=== PATIENT | male | born 1945 ===

== ENCOUNTER 2024-06-03 08:27 | Emergency (ER) | payer MEDICARE, MEDICAID, SELFPAY ==
[2024-06-03] VITALS (74 sets, daily range): BP systolic 58–121; BP diastolic 40–80; PULSE 56–187; RESP 7–32; TEMP 36.5; O2SAT 94–100
--- NOTE | 2024-06-03 08:15 | RT.EKG_ITS ---
APPROVED REPORT Exam: Resting ECG Reason for Exam: AMS Patient Location: E HR:103 bpm ECG Measurements Heart Rate 103 AXIS HI 145 P 79 QRSd 87 QRS 266 QT 340 T 87 QTc 445 Conclusion Sinus tachycardia...rate> 99 Right atrial enlargement...P>0.25mV 2 lds or<-0.24mV aVR/aVL Probable inferior infarct, old...Q>35mS, II III aVF Consider anterior infarct...Q >30mS in V2-V5
--- NOTE | 2024-06-03 08:37 | ED.GENADUL_ITS ---
Discharge Plan Discharge Details Chief Complaint: AMS/LOC Clinical Impression: Cachectic, Renal failure, Pneumothorax, Pneumomediastinum, Afib Primary Care Provider: Unknown,Unknown ED Provider: Shelbie Ludwig Home Meds and New Rx's Prescriptions: No Action No Known Home Meds HPI General Mode of arrival: EMS . Date/Time Provider Initiated Documentation: 06/03/24 08:35 . Limitations to Documentation: altered mental status and physical limitation . Information obtained by: patient, EMS, RN notes reviewed and old records reviewed . HPI Narrative: 78-year-old male presents to the ER via EMS with chief complaint of altered mental status, cachexia, possible dehydration. Per EMS patient is in an apartment complex lives alone, EMS was called by a landlord, EMS reports approximately 80 degrees in the apartment. The landlord did bring the patient some milk on Monday which was patient's last known well. Here in cachectic state, very thin appears malnourished, sick white coating on mucous membranes. On exam does have stage II skin breakdown noted to the coccyx. Does answer yes or no questions, no facial droop moves all 4 extremities, 2 out of 5 strength to all 4 extremities, generalized weakness, no signs of trauma noted, no increased work of breathing or respiratory distress. Patient denies falls or hitting his head. Denies any meds allergies. Related Data Home Medications ?Medication ?Instructions ?Recorded ?Confirmed Unknown [No Known Home Meds] 06/03/24 06/03/24 Allergies Allergy/AdvReac Type Severity Reaction Status Date / Time No Known Allergies Allergy Unverified 06/03/24 08:33 General Stated Complaint: AMS/LOC JAZMYNE: 2 Review of Systems Narrative: Poor historian, History limited by physical condition. Patient appears very weak, hard time speaking, but answers yes or no questions All systems reviewed & are unremarkable except as noted in HPI and below and Unobtainable due to mental status Constitutional Constitutional: Reports as per HPI, Denies frequent falls, Reports poor appetite, Reports weakness and Reports weight loss Cardiovascular Cardiovascular: Denies chest pain, Denies leg ulcers and Reports leg edema Respiratory Respiratory: Denies cough Gastrointestinal Gastrointestinal: Denies abdominal pain, Reports loose stools and Denies vomiting Genitourinary Genitourinary: Reports as per HPI Integumentary/Breasts Skin/Breast: Reports dry skin, Denies rash, Reports skin ulcer (Coccyx) and Reports sores Neurologic Neurologic: Reports as per HPI, Reports behavioral changes, Denies frequent falls and Reports weakness Psychiatric Psychiatric: Reports behavioral changes Exam Narrative Exam Narrative: Constitutional: Awake and responsive answers yes or no, no focal neurodeficits noted, EOMs intact, patient is very cachectic appears chronically ill and malnourished. Head: Normocephalic, no trauma. Eyes: Pupils PERRL, Red reflex noted, EOM's intact. Eyelids symmetrical without lesions, discharge, or swelling. ENT: Bilateral TM's WNL, External ear normal to inspection, no mastoid TTP, swelling, or erythema, Nasal turbinates WNL, no nasal discharge. Poor dentition, mucous membranes coated with thick white possible milky substance. Chest: RRR, mild tachycardia 101, normal S1, S2, distal pulses intact. Hypotensive 86/68 upon arrival, 1+ edema noted to bilateral lower extremities. Resp: Lungs clear to auscultation bilaterally, no wheezes, rales, or rhonchi. Abdomen: Soft, no palpable masses no guarding no distention. Musculoskeletal: Unable to assess gait, unable to lift legs off bed, generalized weakness. Skin: Stage II decubitus ulcer noted to the coccyx top layer of dermis breakdown, no surrounding induration or erythema noted, no drainage 2 seperate areas of breakdown, (See diagram) approximately 2 cm x 2 cm,capillary refill less than 2 sec. Neurologic: Cranial nerves II-XII intact. Alert and oriented x 1. Motor: No deficits noted. Sensory: Intact bilaterally all 4 extremities. Hematologic/Lymphatic: No suspicious or traumatic ecchymosis, no lymphadenopathy. Course Vital Signs Vital signs: Vital Signs Pulse 101 H 06/03/24 08:28 Respiratory Rate 18 06/03/24 08:28 Blood Pressure 86/68 L 06/03/24 08:28 Pulse Oximetry 94 06/03/24 08:28 Pulse 101 H 06/03/24 08:28 Respiratory Rate 18 06/03/24 08:28 Blood Pressure 86/68 L 06/03/24 08:28 Pulse Oximetry 94 06/03/24 08:28 Oxygen Delivery Method Room Air 06/03/24 08:28 Oxygen Flow Rate 0 06/03/24 08:28 Medical Decision Making 78-year-old male presents to the ER via EMS with chief complaint of altered mental status, cachexia, possible dehydration. Per EMS patient is in an apartment complex lives alone, EMS was called by a landlord, EMS reports approximately 80 degrees in the apartment. The landlord did bring the patient some milk on Monday which was patient's last known well. Here in cachectic state, very thin appears malnourished, sick white coating on mucous membranes. On exam does have stage II skin breakdown noted to the coccyx. Does answer yes or no questions, no facial droop moves all 4 extremities, 2 out of 5 strength to all 4 extremities, generalized weakness, no signs of trauma noted, no increased work of breathing or respiratory distress. Patient denies falls or hitting his head. Denies any meds allergies. Workup ordered including CT head, chest x-ray serial troponins EKG CBC CMP magnesium urinalysis UDS and 500 cc normal saline. Differential diagnosis at this time includes but not limited to CVA however,no obvious focal neurodeficits noted no hemiplegia, malnourishment, dehydration, electrolyte disturbance, failure to thrive, Un diagnosed CA, EKG was reviewed by Dr. Rivera and myself ER attending, no old EKG available. Tachycardic please see official report. At this time patient has converted into atrial fibrillation with RVR rate at this time currently is approximately 185, patient placed on monitor pads, Dr. Rivera at bedside at my request, will consider small amount of diltiazem for rate control however his blood pressure he is hypotensive at 78/53 this time. Will observe closely. Patient is getting a liter of LR at this time. Repeat EKG obtained which shows A-fib with RVR. I did ask patient again if he wanted to be intubated or have CPR if needed he does shake his head no. However at this time it is unlikely that patient has medical decision-making capacity, no emergency contacts listed, patient denies any family or friends. BP cuff set for Q5 min, continuous observation and frequent re-evaluations, BP now 82/63 during IV bolus of LR. Spoke with Dr. Hawley with radiology he reports what looks like possible subcutaneous air to his right chest wall however no evidence of pneumothorax or broken ribs no aspiration, see official report. CT chest without contrast ordered. I will further inspect patient's chest. For any wounds. On patient reevaluation he appears to be responding much better at this time. He does whisper to me Can I have ice cream?, patient given a oral mouth swab patient is attempting to swab his mouth. No wounds noted to Right chest wall or axillae, Moves upper extremities without difficulty, discussed likely admission with patient, he nods in understanding. Patient being transported to mobile CT unit with RN and tele-monitoring. Will re-assess and give cardizem slow IVP after returning. 1045: Patient received 5 mg of Cardizem slow IV push over approximately 10 minutes, heart rate is now 129, blood pressure 75/60, MAP of 64, Wilks catheter placed by staff consultant, 100 cc yellow urine return. 1150: Spoke with Dr. Jung regarding patient case in details, he is ok with Phenylephrine drip for BP management, please see the CT results regarding extendsive Subcutaneous emphysema of unknown origin. , 1158: Dr. Hawley With General surgery regarding CT result who does not recommend chest tube at this time he states possibly a ruptured bulae, he agrees to consult patient if needed. 1159: Dr. Concepcion paged at Dr. Whitman recommendation. Will plan for admission. 1205: Spoke with Dr. Concepcion who recommends fluid re-hydration at this tiem, will hold Cardizem drip. Will go ahead with Phenylephrine drip. 1211: On re-evaluation Urine output approx 400ml, dark kassandra urine, LR at 125/hr. pending Phenylephrine gtt. 1217: Spoke again with Dr. Elmore he agrees to accept patient for admission, 1250: Dr. Elmore at [facility] for pt eval, echo-tech at BS. Awaiting bed placement, BP 102 systolic after phenylephrine drip started. HR 137. [employer] records management specialist here at [facility] for patient eval, Dr. Hawley with general surgery, and Dr. Elmore with hospitalist team here for patient case and details discus adeola. 1434: Requested for [facility] consult from Dr. Elmore. 1443: Spoke with [facility] transfer center regarding pt case and details, they have ICU capacity at [facility]. 1630: Care to be handed off to oncoming provider MOMO Baldwin pending tertiary facility transfer versus admission to ICU. Discussed patient case in details with him he verbalized understanding. I still have not heard back from [facility] at this time. Patient continued to be monitored here In ED at this time. Imaging Data Radiologic Study: Imaging: CT Scan Radiologist's impression: IMPRESSION: 1. Examination limited by lack of IV contrast and intra-abdominal fat. 2. Extensive subcutaneous gas particularly in the neck and chest region. 3. Pneumomediastinum and small right apical pneumothorax. 4. Reticular nodular infiltrate seen in the lung bases. Infectious or inflammatory process should be considered. No focal consolidating infiltrates are seen. 5. Unremarkable esophagus. 6. No displaced rib fractures. 7. 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 8. 2.4 cm hypodense lesion in the liver which appears represent a cyst. 9. Left nephrolithiasis without evidence of hydronephrosis. 10. Marked urinary bladder distention which may reflect bladder outlet obstructi on. There is an enlarged prostate gland. 11. The ascending thoracic aorta measures 4.3 x 4.1 cm. Atherosclerotic calcification and coronary artery calcification is present. 12. Findings were discussed with Dr. Rivera at 11:45 a.m. on 06/03/2024. Lab Data Lab results reviewed: Yes I reviewed the patient's lab results. Labs: 06/03/24 09:10 Blood Blood Culture - Pending 06/03/24 08:45 Blood Blood Culture - Pending Laboratory Tests Range/Units 06/03/24 06/03/24 06/03/24 08:45 08:45 09:00 WBC (4.4-10.8) 10^3/uL 11.99 H RBC (4.36-5.78) 10^6/uL 4.87 Hgb (13.5-17.5) g/dL 14.7 Hct (40.0-50.0) % 46.1 MCV (80-95) fL 95 MCH (27.0-33.0) pg 30.2 MCHC (32.0-36.0) % 31.9 L RDW (11.8-14.1) % 17.8 H Plt Count (130-400) 10^3/uL 59 L MPV (8.0-11.0) fL 11.1 H Immature Gran % % 0.5 Neutrophils % % 85.6 Lymphocytes % % 8.6 Monocytes % % 5.1 Eosinophils % % 0.0 Basophils % % 0.2 Nucleated RBC % (0.0-0.3) % 0.2 Absolute Neutrophils (1.2-6.7) 10^3/uL 10.26 H Absolute Lymphocytes (1.2-3.4) 10^3/uL 1.03 L Absolute Monocytes (0.1-0.8) 10^3/uL 0.61 Absolute Eosinophils (0.0-0.7) 10^3/uL 0.00 Absolute Basophils (0.0-0.2) 10^3/uL 0.02 RBC Morphology Normal PT (9.1-11.1) sec 16.1 H INR (0.9-1.1) 1.7 H Sodium (136-145) mmol/L 163 H* Potassium (3.5-5.1) mmol/L 4.4 Chloride (98-107) mmol/L 114 H Carbon Dioxide (21.0-32.0) mmol/L 32.7 H Anion Gap (3-11) mmol/L 16.3 H BUN (7-18) mg/dL 181 H* Creatinine (0.70-1.30) mg/dL 6.8 H* Est GFR (CKD-EPI 2020) (mL/min/1.73m2) 7.82 Glucose (74-106) mg/dL 160 H Calcium (8.5-10.1) mg/dL 11.0 H Magnesium (1.8-2.4) mg/dL 3.4 H Total Bilirubin (0.2-1.0) mg/dL 1.47 H AST (15-37) U/L 22 ALT (16-63) U/L 25 Alkaline Phosphatase (46-116) U/L 88 Ammonia (11-32) umol/L Creatine Kinase (39-308) U/L 38 L Troponin I (< or =60) ng/L 59 C-Reactive Protein (<or=0.5) mg/dL 8.48 H NT-Pro-B Natriuret Pep (<300) pg/mL 2266 H Total Protein (6.4-8.2) g/dL 8.2 Albumin (3.4-5.0) g/dL 3.7 Procalcitonin ng/mL 0.7 TSH (0.36-3.74) uIU/mL 2.92 3.00 Ethyl Alcohol (<10) mg/dL < 3.0 Add-On Test Request DONE Range/Units 06/03/24 06/03/24 09:23 09:41 WBC (4.4-10.8) 10^3/uL RBC (4.36-5.78) 10^6/uL Hgb (13.5-17.5) g/dL Hct (40.0-50.0) % MCV (80-95) fL MCH (27.0-33.0) pg MCHC (32.0-36.0) % RDW (11.8-14.1) % Plt Count (130-400) 10^3/uL MPV (8.0-11.0) fL Immature Gran % % Neutrophils % % Lymphocytes % % Monocytes % % Eosinophils % % Basophils % % Nucleated RBC % (0.0-0.3) % Absolute Neutrophils (1.2-6.7) 10^3/uL Absolute Lymphocytes (1.2-3.4) 10^3/uL Absolute Monocytes (0.1-0.8) 10^3/uL Absolute Eosinophils (0.0-0.7) 10^3/uL Absolute Basophils (0.0-0.2) 10^3/uL RBC Morphology PT (9.1-11.1) sec INR (0.9-1.1) Sodium (136-145) mmol/L Potassium (3.5-5.1) mmol/L Chloride (98-107) mmol/L Carbon Dioxide (21.0-32.0) mmol/L Anion Gap (3-11) mmol/L BUN (7-18) mg/dL Creatinine (0.70-1.30) mg/dL Est GFR (CKD-EPI 2020) (mL/min/1.73m2) Glucose (74-106) mg/dL Calcium (8.5-10.1) mg/dL Magnesium (1.8-2.4) mg/dL Total Bilirubin (0.2-1.0) mg/dL AST (15-37) U/L ALT (16-63) U/L Alkaline Phosphatase (46-116) U/L Ammonia (11-32) umol/L < 10 L Creatine Kinase (39-308) U/L Troponin I (< or =60) ng/L C-Reactive Protein (<or=0.5) mg/dL NT-Pro-B Natriuret Pep (<300) pg/mL Total Protein (6.4-8.2) g/dL Albumin (3.4-5.0) g/dL Procalcitonin ng/mL TSH (0.36-3.74) uIU/mL Ethyl Alcohol (<10) mg/dL Add-On Test Request DONE Quality:SDOH Health Related Social Needs: No Data to Display Critical Care Time Critical Care Time Critical Care Time: Yes Total Critical Care Time: 60 PFSH All Active Problems (Updated 06/03/24 @ 14:38 by Shelbie Ludwig NP) Pneumomediastinum (Acute) Pneumothorax (Acute) Hypovolemic shock (Acute) Shock (Acute) Shock bowel (Acute) Thrombocytopenia (Chronic) Afib (Chronic) ELOISA (acute kidney injury) (Acute) Chronic hypernatremia (Acute) Renal failure (Chronic) Cachectic (Acute) Social History Smoking/Tobacco Use Status: Never Smoking risk assessment performed?: Yes Alcohol Intake: never Drug use: Never Substance use type: does not use Housing: apartment Sign Out Sign Out Data: Sign Out Comment: Hypernatremia, Afib, refractory, Renal failure, Pending transfer to tertiary facility, awaiting call back from [facility]. Needs ICU admission. Last updated by Shelbie Ludwig NP at 06/03/24 16:12
--- NOTE | 2024-06-03 08:45 | RT.EKG_ITS ---
APPROVED REPORT Exam: Resting ECG Reason for Exam: Tachycardia Patient Location: E HR:162 bpm ECG Measurements Heart Rate 162 AXIS VT [id number] P [id number] QRSd 84 QRS -60 QT 293 T 89 QTc 482 Conclusion Atrial fibrillation with rapid V-rate...A-rate 351 Left anterior fascicular block...axis(240,-40), init forces inf Low voltage, extremity leads...all extremity leads <0.5mV Nonspecific T abnormalities, lateral leads...T <-0.10mV, I aVL V5 V6
[2024-06-03 08:54] LABS: Abs Immature Grans 0.06 10^3/uL (0.0-0.06); Absolute Basophil Count 0.02 10^3/uL (0.0-0.2); Absolute Lymphocyte Count 1.03 10^3/uL (1.2-3.4); Absolute Monocyte Count 0.61 10^3/uL (0.1-0.8); Basophils % 0.2 %; HCT 46.1 % (40.0-50.0); HGB 14.7 g/dL (13.5-17.5); Immature Grans % 0.5 %; Lymphocytes % 8.6 %; MCH 30.2 pg (27.0-33.0); MCHC 31.9 % (32.0-36.0); MCV 95 fL (80-95); MPV 11.1 fL (8.0-11.0); Monocytes % 5.1 %; Neutrophils % 85.6 %; Nucleated RBC 0.2 % (0.0-0.3); RBC 4.87 10^6/uL (4.36-5.78); RDW 17.8 % (11.8-14.1); RDW-SD 57.5 fL; WBC 11.99 10^3/uL (4.4-10.8)
[2024-06-03 08:56] LABS: Absolute Neutrophil Count 10.26 10^3/uL (1.2-6.7)
--- NOTE | 2024-06-03 08:58 | DI.RAD_ITS ---
Exam(s) XR PORTABLE CHEST AP EXAM: XR PORTABLE CHEST AP CLINICAL HISTORY: AMS TECHNIQUE: 2D digital imaging was performed of the chest. One image was obtained. An AP view was ob tained. COMPARISON: No exams were available for comparison FINDINGS: MEDIASTINUM: Normal. HEART: Normal. PULMONARY VASCULATURE: Normal. LUNGS: Clear. PLEURAL SPACE: There is no pleural effusion. No pneumothorax is seen on the left. No definite pneum othorax is seen on the right, however evaluation of the lung apex is limited. BONE:Within normal limits for the patient's age. No displaced rib fractures identified. OTHER FINDINGS:Along the right chest wall superiorly, there does appear to be subcutaneous air extend ing into the neck. IMPRESSION: 1. Subcutaneous air along the right clavicle and right lateral chest wall. Noncontrast CT scan of th e chest should be considered for further evaluation. 2. No evidence of a displaced rib fracture. No definite pneumothorax is seen, however evaluation of the lung apex is compromised. 3. No focal infiltrate or pleural effusion. 4. Findings were discussed with the Shelbie Ludwig at 9:20 a.m. on 06/03/2024. DATA REPOSITORY: RADIATION DOSE DELIVERED:
[2024-06-03 09:02] LABS: INR 1.7 (0.9-1.1); Prothrombin Time 16.1 sec (9.1-11.1)
[2024-06-03] MEDS: Lactated Ringers 1,000 ML 1000 ML IV (09:07)
[2024-06-03 09:09] LABS: Lab Add On Test DONE
[2024-06-03 09:23] LABS: Platelet Count 59 10^3/uL (130-400)
[2024-06-03 09:24] LABS: Diff Comment Diff Reviewed; RBC Morphology Normal
[2024-06-03 09:26] LABS: ALT 25 U/L (16-63); AST 22 U/L (15-37); Albumin 3.7 g/dL (3.4-5.0); Alkaline Phosphatase 88 U/L (46-116); Anion Gap 16.3 mmol/L (3-11); Bilirubin, Total 1.47 mg/dL (0.2-1.0); CO2 32.7 mmol/L (21.0-32.0); Chloride 114 mmol/L (98-107); Estimated GFR 7.82 (mL/min/1.73m2); Glucose 160 mg/dL (74-106); Magnesium 3.4 mg/dL (1.8-2.4); Potassium 4.4 mmol/L (3.5-5.1); TSH (W/Ref FT4) 2.92 uIU/mL (0.36-3.74); Total Protein 8.2 g/dL (6.4-8.2); Troponin I 59 ng/L (< or =60)
[2024-06-03 09:30] LABS: ETHANOL BLOOD < 3.0 mg/dL (<10)
[2024-06-03] MEDS: Normal Saline 500 ML IV (09:30)
--- NOTE | 2024-06-03 09:30 | DI.CT_ITS ---
Exam(s) CT CHEST/ABD/PEL WO EXAM: CT CHEST/ABD/PEL WO CLINICAL HISTORY: AMS, Elevated Creatanine, TECHNIQUE: Imaging Protocol: Axial computed tomography images with coronal and sagittal reformatted images were created and reviewed COMPARISON: There are no priors for comparison. FINDINGS: CHEST: Tracheobronchial tree: Patent where visualized. No bronchiectasis. Pulmonary parenchyma: Note is made of an azygos lobe. There is a reticular nodular infiltrate in the lower lobes bilaterally. No focal consolidating infiltrates are seen. No pulmonary nodules are see n. There is mild scarring in the right middle lobe and left lingula. Mediastinum and Teagan: There is pneumomediastinum present there is right apical pneumothorax which gabriel ears small. The esophagus is unremarkable. Thyroid gland: Unremarkable. Pleura: No pleural effusion. Heart: The heart is not dilated. Coronary artery calcification is present. No pericardial effusion. Aorta: The ascending thoracic aorta measures 4.3 x 4.1 cm. Atherosclerotic calcification is present. Lymph nodes: Within normal limits. Bones:Within normal limits for the patient's age. No displaced rib fractures are identified. Age-ap propriate degenerative changes are seen in the spine. Soft tissues: There is extensive subcutaneous air in the neck and chest bilaterally. It extends infe riorly in the paraspinal soft tissues. ABDOMEN: Liver: Normal density. There is a 2.4 cm hypodense lesion in the right liver. It appears slightly hy podense to the urine in the urinary bladder suggesting a cyst. No suspicious hepatic lesions are see n at this time. Gallbladder and Biliary Tract: No radiodense calculus or dilation. Pancreas: Normal density, no abnormal calcifications or inflammatory process. Spleen: Calcified granuloma are present. Adrenals: No masses seen. Kidneys: Normal size, contour and axis. Left nephrolithiasis. No obstructive uropathy. There is a c yst in the left kidney. No follow-up is recommended. Abdominal Aorta: Atherosclerotic calcification is present. There is a 3 cm infrarenal abdominal aort ic aneurysm. 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 Bowel: Evaluation of the bowel is limited due to lack of oral contrast and paucity of abdominal fat. No evidence of obstruction is seen. No evidence of an appendicitis. Peritoneal Cavity: No ascites, collection or mesenteric inflammatory response. No definite free air i s seen. There is large bowel seen in the left upper quadrant. It appears to all be intraluminal. Lymph Nodes: Within normal limits. Bones: Within normal limits for the patient's age. Soft Tissues: There is subcutaneous air seen in the paraspinal soft tissues. PELVIS: Bladder: The bladder is markedly distended. It is otherwise unremarkable. This may reflect bladder outlet obstruction. Reproductive Organs: Enlarged prostate gland. Lymph Nodes: Within normal limits. Bones: Within normal limits for the patient's age. IMPRESSION: 1. Examination limited by lack of IV contrast and intra-abdominal fat. 2. Extensive subcutaneous gas particularly in the neck and chest region. 3. Pneumomediastinum and small right apical pneumothorax. 4. Reticular nodular infiltrate seen in the lung bases. Infectious or inflammatory process should be considered. No focal consolidating infiltrates are seen. 5. Unremarkable esophagus. 6. No displaced rib fractures. 7. 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 8. 2.4 cm hypodense lesion in the liver which appears represent a cyst. 9. Left nephrolithiasis without evidence of hydronephrosis. 10. Marked urinary bladder distention which may reflect bladder outlet obstruction. There is an enla rged prostate gland. 11. The ascending thoracic aorta measures 4.3 x 4.1 cm. Atherosclerotic calcification and coronary a rtery calcification is present. 12. Findings were discussed with Dr. Rivera at 11:45 a.m. on 06/03/2024. RADIATION DOSE DELIVERED: Total DLP Total DLP DATA REPOSITORY: All CT scans at this facility are submitted to the National Radiology Data Registry (NRDR) Dose Index Registry (DIR) with the [employer] ([employer]). RADIATION OPTIMIZATION: All CT scans at this facility use at least one of these dose optimization te chniques: automated exposure control; mA and/or kV adjustment per patient size (includes targeted exa ms where dose is matched to clinical indication); or iterative reconstruction.
[2024-06-03 09:32] LABS: BUN 181 mg/dL (7-18); CREATININE 6.8 mg/dL (0.70-1.30); Sodium 163 mmol/L (136-145)
[2024-06-03 09:46] LABS: Ammonia < 10 umol/L (11-32)
[2024-06-03 10:04] LABS: Lab Add On Test DONE
--- NOTE | 2024-06-03 10:15 | DI.CT_ITS ---
Exam(s) CT HEAD WO EXAM: CT HEAD WO CLINICAL HISTORY: AMS. TECHNIQUE: Imaging Protocol: Axial computed tomography images with coronal and sagittal reformatted images were created and reviewed COMPARISON: No exams were available for comparison FINDINGS: There is patient motion artifact Ventricles and Extra axial spaces: Normal in size and morphology for the patient's age. Hemorrhage: None. Cerebral parenchyma: There are areas of decreased attenuation in the white matter consistent with chr onic microvascular ischemic disease. No mass effect is identified. Midline shift: None. Brainstem/Cerebellum: Normal. Calvarium: Normal. Visualized Paranasal sinuses/Mastoids: Clear. Soft Tissues: There is subcutaneous air in the soft tissues of the neck. IMPRESSION: 1. No acute intracranial process. 2. Subcutaneous air in the soft tissues of the neck of indeterminate etiology. RADIATION DOSE DELIVERED: Total DLP DATA REPOSITORY: All CT scans at this facility are submitted to the National Radiology Data Registry (NRDR) Dose Index Registry (DIR) with the [employer] (ACR). RADIATION OPTIMIZATION: All CT scans at this facility use at least one of these dose optimization te chniques: automated exposure control; mA and/or kV adjustment per patient size (includes targeted exa ms where dose is matched to clinical indication); or iterative reconstruction.
[2024-06-03 10:26] LABS: C-Reactive Protein 8.48 mg/dL (<or=0.5); Creatine Kinase 38 U/L (39-308); NT-proBNP 2266 pg/mL (<300)
[2024-06-03 10:29] LABS: Procalcitonin 0.7 ng/mL
[2024-06-03] MEDS: dilTIAZem 25 MG/5 ML VIAL 5 MG IVP ×2 (10:58→11:04)
[2024-06-03] MEDS: Lactated Ringers 1,000 ML 100 ML IV (10:59)
[2024-06-03 12:17] LABS: Troponin I 53 ng/L (< or =60)
--- NOTE | 2024-06-03 12:41 | W.SURGCON ---
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 Mediastinal pathology that would include things like esophageal perforation and esophageal malignancy would also be within the differential here, although the lack of any inflammation within the mediastinum, or any signs of free fluid would argue against that. Obviously, necrotizing soft tissue infection could also cause this, but the external skin is totally normal-appearing, and he is not really tender at all. And with this much gas, I certainly think the more obvious changes would be apparent externally if that was the case. Given his overall appearance of severe malnutrition, malignancy could also be considered, although there is not an obvious source at this point. The subcutaneous emphysema itself does not seem to be causing much pain, and should resolve with time. If he requires positive pressure ventilation, then I would repeat an x-ray very shortly thereafter to ensure that there is no accumulation of true pneumothorax. Absent that, I do not see any target for tube thoracostomy. Obviously, he has a number of other critical medical conditions including severe hypernatremia and acute renal failure. Seems to be most consistent with severe dehydration, and should improve with plasma expansion and scientologist of normal intravascular volume. History of Present Illness History of Present Illness Chief Complaint: Subcutaneous emphysema Narrative: Vicente is 78 years old, comes to the emergency department by EMS after neighbor checked on him and found with altered mental status in his recliner. It seems that he has been there for several days. In the emergency department, he is found to have a mild leukocytosis. He is hyponatremic to a sodium of 160, with evidence of acute kidney injury as well. There are some community connections notes describing some homelessness, and the significant number of social determinants of health. However, not much else is known about his medical conditions otherwise. He tells me that he is not feeling well. He does not report any known past medical history. He denies any allergies. He cannot recall the last time he saw a doctor. He is thirsty. He denies any nausea or vomiting. He cannot recall the last time he had anything to eat or drink. While in the emergency department, he underwent a CT scan of the chest abdomen and pelvis. Relevant findings include extensive subcutaneous emphysema involving mostly the right thorax, but certainly extending up into the neck bilaterally. Review of Systems Constitutional Constitutional: Reports body ache(s), Reports fatigue, Denies fever(s), Reports lethargy, Reports poor appetite, Reports weakness and Reports weight loss Eyes Eyes: Reports system reviewed and no additional complaints, except as documented ENT Ears, Nose, Mouth, and Throat: Reports abnormal hearing, Reports change in voice, Reports dizziness and Reports dry mouth Cardiovascular Cardiovascular: Denies chest pain and Reports dyspnea Respiratory Respiratory: Denies cough and Reports dyspnea Gastrointestinal Gastrointestinal: Denies change in stool character, Denies nausea and Denies vomiting Genitourinary Genitourinary: Reports system reviewed and no additional complaints, except as documented Musculoskeletal Musculoskeletal: Reports abnormal gait, Reports back pain, Reports myalgias and Reports atrophy Neurologic Neurologic: Reports abnormal hearing, Reports abnormal gait, Reports dizziness and Reports weakness Psychiatric Psychiatric: Reports system reviewed and no additional complaints, except as documented Endocrine Endocrine: Reports fatigue Hematologic/Lymphatic Hematologic/Lymphatic: Denies easy bleeding and Denies easy bruising PFSH All Active Problems Pneumomediastinum (Acute) Pneumothorax (Acute) Hypovolemic shock (Acute) Shock (Acute) Shock bowel (Acute) Thrombocytopenia (Chronic) Afib (Chronic) ELOISA (acute kidney injury) (Acute) Chronic hypernatremia (Acute) Renal failure (Chronic) Cachectic (Acute) Social History Smoking/Tobacco Use Status: Never Smoking risk assessment performed?: Yes Alcohol Intake: never Drug use: Never Substance use type: does not use Housing: apartment Exam Const General: cooperative, frail appearing and ill appearing Nutritional Appearance: cachectic Orientation: alert, oriented to place and confused [facility] Head: normal to inspection Neck Neck: normal visual inspection, full ROM and no lymphadenopathy Resp Effort & Inspection: not able to speak in complete sentences Auscultation: wheezes Results Last Vital Signs Pulse 114 H 06/03/24 12:11 Resp 20 06/03/24 11:10 BP 68/40 L 06/03/24 12:11 Pulse Ox 98 06/03/24 12:11 Labs 06/03/24 08:45 06/03/24 15:22 Labs: Laboratory Results - last 24 hr 06/03/24 06/03/24 06/03/24 08:45 08:45 09:00 WBC 11.99 H RBC 4.87 Hgb 14.7 Hct 46.1 MCV 95 MCH 30.2 MCHC 31.9 L RDW 17.8 H Plt Count 59 L MPV 11.1 H Immature Gran % 0.5 Neutrophils % 85.6 Lymphocytes % 8.6 Monocytes % 5.1 Eosinophils % 0.0 Basophils % 0.2 Nucleated RBC % 0.2 Absolute Neutrophils 10.26 H Absolute Lymphocytes 1.03 L Absolute Monocytes 0.61 Absolute Eosinophils 0.00 Absolute Basophils 0.02 RBC Morphology Normal PT 16.1 H INR 1.7 H Sodium 163 H* Potassium 4.4 Chloride 114 H Carbon Dioxide 32.7 H Anion Gap 16.3 H BUN 181 H* Creatinine 6.8 H* Est GFR (CKD-EPI 2020) 7.82 Glucose 160 H Calcium 11.0 H Magnesium 3.4 H Total Bilirubin 1.47 H AST 22 ALT 25 Alkaline Phosphatase 88 Ammonia Creatine Kinase 38 L Troponin I 59 C-Reactive Protein 8.48 H NT-Pro-B Natriuret Pep 2266 H Total Protein 8.2 Albumin 3.7 Procalcitonin 0.7 TSH 2.92 3.00 Ethyl Alcohol < 3.0 Add-On Test Request DONE 06/03/24 06/03/24 06/03/24 09:23 09:41 11:35 WBC RBC Hgb Hct MCV MCH MCHC RDW Plt Count MPV Immature Gran % Neutrophils % Lymphocytes % Monocytes % Eosinophils % Basophils % Nucleated RBC % Absolute Neutrophils Absolute Lymphocytes Absolute Monocytes Absolute Eosinophils Absolute Basophils RBC Morphology PT INR Sodium Potassium Chloride Carbon Dioxide Anion Gap BUN Creatinine Est GFR (CKD-EPI 2020) Glucose Calcium Magnesium Total Bilirubin AST ALT Alkaline Phosphatase Ammonia < 10 L Creatine Kinase Troponin I 53 C-Reactive Protein NT-Pro-B Natriuret Pep Total Protein Albumin Procalcitonin TSH Ethyl Alcohol Add-On Test Request DONE Imaging Abdomen CT scan report/results: report reviewed and image reviewed CT scan - chest: report reviewed CT scan - pelvis: report reviewed and image reviewed
[2024-06-03 12:46] LABS: NT-proBNP 2068 pg/mL (<300)
[2024-06-03 13:06] LABS: BE 5 mmol/L (-2-3); HCO3 30 mmol/L (22-26); pCO2 46 mmHg (35-45); pH 7.41 (7.35-7.45); pO2 81 mmHg (80-105); sO2 95 % (95-98); tCO2 27 mmol/L (23-27)
[2024-06-03 13:08] LABS: FIO2 Unknown/Not Given %; FIO2L Unknown/Not Given L; Site Right Radial
[2024-06-03] MEDS: CEFEPIME 2 GM in Normal Saline 50 ML IVPB (13:20)
[2024-06-03 13:34] LABS: Anion Gap 14.3 mmol/L (3-11); CO2 32.7 mmol/L (21.0-32.0); Calcium 10.4 mg/dL (8.5-10.1); Chloride 115 mmol/L (98-107); Estimated GFR 8.41 (mL/min/1.73m2); Glucose 158 mg/dL (74-106); Potassium 4.2 mmol/L (3.5-5.1)
[2024-06-03 13:38] LABS: BUN 176 mg/dL (7-18); CREATININE 6.4 mg/dL (0.70-1.30); Sodium 162 mmol/L (136-145)
[2024-06-03] MEDS: DEXTROSE 5%-WATER 500 ML 60 ML IV (13:40)
[2024-06-03] MEDS: DOXYCYCLINE 100 MG in Normal Saline 100 ML IVPB (13:40)
--- NOTE | 2024-06-03 13:54 | PUCC_ITS ---
General Date of Service Date of service: 06/03/24 Time of Service: 13:54 Reason for Admission to ICU: Hypernatremia, ELOISA, pneumothorax, pneumomedistianum Assessment and Plan Assessment and plan (1) Chronic hypernatremia: Status: Acute (2) ELOISA (acute kidney injury): Status: Acute (3) Afib: Status: Chronic Qualifiers: Atrial fibrillation type: unspecified Qualified Code(s): I48.91 - Unspecified atrial fibrillation (4) Thrombocytopenia: Status: Chronic (5) Cachectic: Status: Acute (6) Hypovolemic shock: Status: Acute (7) Pneumothorax: Status: Acute Qualifiers: Pneumothorax type: unspecified pneumothorax Qualified Code(s): J93.9 - Pneumothorax, unspecified (8) Pneumomediastinum: Status: Acute (9) High anion gap metabolic acidosis: Status: Acute (10) Encephalopathy, metabolic: Status: Acute Recommendations Pulmonary: 78yo cachetic male w/ unknown medical history in our facility presenting w/ hyponatremia, ELOISA w/ uremia, encephalopathy, new onset Afib, shock felt to be mostly hypovolemic, thrombocytopenia, pneumothorax and pneumomediastinum all of unclear etiology and chronicity. He is critically ill and needs close monitoring in ICU. I believe he may benfit from care at tertiary care facility where rack worker is readily available. Also given uremia, ATN, hyper NA and encephalopathy a nephrology consult is needed for close monitoring and possible need for [employer]/HD. Resp -Aspiration precautions -small R apical Pneumo w/ pneumomediastinum - surgery has evaluated no indication for chest tube. - daily CXR, give O2to bring O2Sats and help absorb PTX. Appreciate Surgery input. -no clear signs of sepsis but owuld start empiric antibiotics -abg w/ no hypercarbia, ok O2 Cardiac: He was initially on sinus and went into Afib but after 10mg IV Diltiazem he converted back to sinus. Currently on Phenylephrine to keep MAP>65 Check Echo follow trops/cpks check lactic acid Renal: AG metabolic acidosis likely uremia, mild elevation lactic acid Needs D5W but also w/ profound intravascular depletion. Will cont w/ LR for the time being and check BMP q2h. attempt not to decrease sodium by more than 10mEq in 24h. monitor UO close monitoring of BUN/creatinine I&O: Intake & Output 05/31/24 06/01/24 06/02/24 06/03/24 23:59 23:59 23:59 23:59 Intake Total 1866.388 / 186.388 Balance 1866.388 / 1866.388 Weight 47 kg GI Nutrition: NPO except for oral care/ok for swabs. Infectious Disease: Start empiric antibiotics Ceftriaxone/Azithro Get blood cultures Hematologic: unclear etiology for thrombocytopenia check DIC panel hold off dvt prophy Neurologic: encephalopathy likely 2/2 to elevated BUN. avoid sedatives Endocrine: FS q4h RISS Lines: unable to obtain central access 3 peripheral IVs Prophylaxis: Hold off DVt prophy Code Status: Poor prognosis. No family members. He states he does not want intubation, but unclear if his mentation is appropriate for decision making. Resuscitation Status DNR/DNI Subjective Critical and life-threatening events over the past 24 hours: 78yo male w/ no available medical history or family, was found sitting in his chair by his landlord today after presumably several days and brought to ED. Upon arrival he was found to be hypotensive to 60's, initially in sinus but then Afib now back to sinus, labs showing severe hypernatremia, ELOISA, thrombocytopenia, CT showing pneumothorax and pneumomediastinum of unclear etiology. He is alert but has a very weak voice and apparently reports no trauma. Over the course of ED stay he lost his peripheral access and attempts have been made to obtain central access but unable due to subcutaneous air on his neck, anatomy on L groin (vein under artery) and an old incision on his R groin. He initially received 2L of LR/NS followed by D5W at 60ml/hr based on his calculated water deficit but latest sodium had gone up. Initially UO of 750ml noted but none in the last 3hours. Due to hypotension he was started on phenylephrine. No medical hx available. No medication history Exam Narrative Exam Narrative: Cachectic, chronically ill appearing Alert but confused at times in mild distress no jaundice, dry mucous membranes lungs decreased breath sounds bilaterally Irreg Irreg no murmurs abd soft bs+ tender diffusely on palpation ext no edema, cold ext neuro moves all ext, non focal Eyes General: appearance normal, both eyes and all related structures Most Recent VS/Results Last Vital Signs Temp 36.5 C 06/03/24 13:20 Pulse 114 H 06/03/24 13:20 Resp 22 06/03/24 13:20 BP 115/77 06/03/24 13:20 Pulse Ox 99 06/03/24 13:20 Laboratory Results - last 24 hr 06/03/24 06/03/24 06/03/24 03:00 08:45 08:45 WBC 11.99 H RBC 4.87 Hgb 14.7 Hct 46.1 MCV 95 MCH 30.2 MCHC 31.9 L RDW 17.8 H Plt Count 59 L MPV 11.1 H Immature Gran % 0.5 Neutrophils % 85.6 Lymphocytes % 8.6 Monocytes % 5.1 Eosinophils % 0.0 Basophils % 0.2 Nucleated RBC % 0.2 Absolute Neutrophils 10.26 H Absolute Lymphocytes 1.03 L Absolute Monocytes 0.61 Absolute Eosinophils 0.00 Absolute Basophils 0.02 RBC Morphology Normal PT 16.1 H INR 1.7 H ABG Sample Site Right Radial ABG pH 7.41 ABG pCO2 46 H ABG pO2 81 ABG HCO3 30 H ABG Total CO2 27 ABG O2 Saturation 95 ABG Base Excess 5 H Oxygen Liter Flow Unknown/Not Given FiO2 Unknown/Not Given Sodium 163 H* Potassium 4.4 Chloride 114 H Carbon Dioxide 32.7 H Anion Gap 16.3 H BUN 181 H* Creatinine 6.8 H* Est GFR (CKD-EPI 2020) 7.82 Glucose 160 H Calcium 11.0 H Magnesium 3.4 H Total Bilirubin 1.47 H AST 22 ALT 25 Alkaline Phosphatase 88 Ammonia Creatine Kinase 38 L Troponin I 59 C-Reactive Protein 8.48 H NT-Pro-B Natriuret Pep 2266 H Total Protein 8.2 Albumin 3.7 Procalcitonin 0.7 TSH 2.92 3.00 Ethyl Alcohol < 3.0 Add-On Test Request 06/03/24 06/03/24 06/03/24 09:00 09:23 09:41 WBC RBC Hgb Hct MCV MCH MCHC RDW Plt Count MPV Immature Gran % Neutrophils % Lymphocytes % Monocytes % Eosinophils % Basophils % Nucleated RBC % Absolute Neutrophils Absolute Lymphocytes Absolute Monocytes Absolute Eosinophils Absolute Basophils RBC Morphology PT INR ABG Sample Site ABG pH ABG pCO2 ABG pO2 ABG HCO3 ABG Total CO2 ABG O2 Saturation ABG Base Excess Oxygen Liter Flow FiO2 Sodium Potassium Chloride Carbon Dioxide Anion Gap BUN Creatinine Est GFR (CKD-EPI 2020) Glucose Calcium Magnesium Total Bilirubin AST ALT Alkaline Phosphatase Ammonia < 10 L Creatine Kinase Troponin I C-Reactive Protein NT-Pro-B Natriuret Pep Total Protein Albumin Procalcitonin TSH Ethyl Alcohol Add-On Test Request DONE DONE 06/03/24 11:35 WBC RBC Hgb Hct MCV MCH MCHC RDW Plt Count MPV Immature Gran % Neutrophils % Lymphocytes % Monocytes % Eosinophils % Basophils % Nucleated RBC % Absolute Neutrophils Absolute Lymphocytes Absolute Monocytes Absolute Eosinophils Absolute Basophils RBC Morphology PT INR ABG Sample Site ABG pH ABG pCO2 ABG pO2 ABG HCO3 ABG Total CO2 ABG O2 Saturation ABG Base Excess Oxygen Liter Flow FiO2 Sodium 162 H* Potassium 4.2 Chloride 115 H Carbon Dioxide 32.7 H Anion Gap 14.3 H BUN 176 H* Creatinine 6.4 H* Est GFR (CKD-EPI 2020) 8.41 Glucose 158 H Calcium 10.4 H Magnesium Total Bilirubin AST ALT Alkaline Phosphatase Ammonia Creatine Kinase Troponin I 53 C-Reactive Protein NT-Pro-B Natriuret Pep 2068 H Total Protein Albumin Procalcitonin TSH Ethyl Alcohol Add-On Test Request Review of Systems Narrative: unable to obtain proper ROS Time spent with patient Time spent in Critical Care: 180 Time spent in Critical care included: Coordination of care, Chart review, Documenting critically ill care, Time at immediate bedside and Discussing critically ill care with other medical staff
--- NOTE | 2024-06-03 13:55 | NUR.NOTE ---
Nursing Note: 750 dark yellow urine emptied from caceres gravity bag. Roshan titrated down per critical care MD.
--- NOTE | 2024-06-03 14:34 | NUR.NOTE ---
Nursing Note: attempted to draw labs but unable to draw from all three lines. Lab here to draw.
[2024-06-03 15:28] LABS: D-Dimer 4603 ng/mlFEU (<500)
[2024-06-03 15:46] LABS: PTT Activated 22.5 sec (23.6-32.8)
--- NOTE | 2024-06-03 16:12 | W.EDPROG ---
Date of service: 06/03/24 Time of Service: 16:12 Medical Decision Making This dictation utilizes [id number] dictation software and may contain unedited grammatical errors. Patient seen in sign-out from Shelbie Ludwig NP- please see her complete note. Essentially this patient is signed out to me in acute renal failure- had presented from a very hot apartment, and some question of mild altered mentation this morning by EMS. Was found to have hypernatremia, was in atrial fibrillation with RVR on arrival with hypotension and was converted, has a right apical pneumo with subcutaneous emphysema in the chest wall and neck without any known trauma, patient has questionable altered mentation, creatinine initially was 6.8 with some response to fluid resuscitation repeat of 6, worsening hypernatremia. Patient CT head is negative for any intracranial acute emergent pathology. Patient had been potentially accepted by hospitalist service here and consulted on in department by both Dr. Elmore and critical care jacquard loom heddles tier Dr. Quezada. Both EM attending's Dr. Rivera and Dr. Kidd have been involved with this patients' care as well. We have no records on this patient, there is some old notes from [facility] but they state they have no records to unit leader. No known emergency contacts. Patient had voiced his desire not to be intubated or resuscitated to prior provider, but hospitalist and ICU attendings question his current capacity to make that decision and feel he may be more suited at a tertiary care facility where he can have dialysis initiated[place] [facility] [place], with consult pending for possible transfer to [facility] ICU where he may be able to obtain dialysis. Patients' medical history: No prior medical history whatsoever and record search. Family and social history: Unknown, lives at home in an apartment here in [place]. Pertinent exam findings / vital signs include cachectic, hypotensive, altered, toxic vitals, shock. Differential / pathologies of concern include shock, acute renal failure, pneumothorax, pneumomediastinum, hypernatremia, atrial fibrillation. Diagnostic studies of: -CBC, CMP, serial troponins, magnesium, PT, ammonia, ethyl alcohol level, TSH, CT head without contrast, TSH, procalcitonin, CK, BNP w/ 2-hour repeat, CRP, repeat BMP, lactate, D-dimer, PTT, EKG, chest x-ray, Blood Cx's, UA. -CBC shows elevated WBCs at 12, elevated absolute neutrophils, low lymphocytes, no profound anemia -Initial metabolic panel shows hyponatremia with a sodium of 162, hyperchloridemia at 115, initial creatinine of 6.4 with a BUN of 176, initial calcium 10.4, elevated total bilirubin of 1.47 Adding on Conj. bili - shows 0.5. -repeat BMP after IVF shows increasing hypernatremia to 165, SCr improved to 6.0 -Ammonia level less than 10 -CK negative -Initial troponin of 59 - Repeat 53 - Adding repeat trop as this had not been ordered @ 1640 - shows [ ] -Initial BNP of 2266, repeat 3 hour shows 2068, no pulmonary edema seen on imaging -D-dimer of 4603, concern R heart strain -PT of 16.1, INR 1.7, PTT low 22.5 -Initial lactate 3.0, procalcitonin 0.7 - concern sepsis adding rpt lactate - shows 2.9 @ 1800hr -CRP 8.48 -Magnesium 3.4 -EtOH level negative -TSH WNL -UA pending at sign-out, patient has not put out any urine in the past couple hours. -Blood Cx's pending -Initial EKG shows sinus tachycardia at 103 bpm with P waves followed by narrow complex QRS with left axis deviation, flattened and questionable inverted T waves in anterior leads without overt ST elevation or depression -Repeat EKG at 0900-atrial fibrillation with RVR at 162 bpm with no dynamic ST changes -Resolved on monitor at this time @1650 -CT Chest/ABD/Pelvis shows small R apical pneumothorax, no rib fractures, pneumomediastinum is present, bilateral reticular infiltrates in lung bases (concern PNA), and subcutaneous gas in neck and chest, questions bladder distention and outflow obstruction. -CT Head wo shows no ICH, no acute emergent abnormality -CXR as above, no optimal evaluation, defer to CT results Interventions of: -Initial IVF was 0.9% NS 500mL bolus, then 1L LR bolus- then 125mL/hr LR, changed to D5W by in-patient providers @ 60mL -per RN 2500mL total of LR & NS -Received IV cefepime, IV doxycycline for empiric sepsis -vasopressors of phenylephrine 10mg @ 40mcg/min -Received IVP dilt of 2.5mg x2, 5mg x1 while he was hypotensive ------Interventions post shift-change------- 1649, patients vitals are relatively stable- in NSR @ 73, soft BP at SBP 94, RR 14, non-hypoxic on RA. 1735: [facility] [place]. Underwood accepts via phone consult at 1735 for ICU Admit at [facility] [place] 1800: Patient is still hypotensive, currently has no Dilt running and is in normal sinus rhythm, is at 70 mcg/min of phenylephrine with D5W running at 60 mL an hour, I added LR at 250 an hour, will enter orders to initiate norepinephrine to keep MAP above 65 and route, if tachycardia present will have nurse initiate amiodarone at 1 mg/min. 193: Patient transferred out. BP normotensive at that time. Disposition of Acute Renal Failure, Sepsis, Shock, Pneumomediastinum, Pneumothorax Right, Subcutaneous Emphysema, Hypernatremia, Atrial Fibrillation with Rapid Ventricular Resposne. Patient verbalized understanding of the plan and return to ED criteria and engaged in shared decision making. Medical Records Medical records reviewed: Yes I reviewed the patient's medical records. Imaging Data Radiologic Study: Attestation: I personally reviewed and interpreted this imaging study as follows: Imaging: X-Ray Radiologist's impression: EXAM: XR PORTABLE CHEST AP CLINICAL HISTORY: AMS TECHNIQUE: 2D digital imaging was performed of the chest. One image was obtained. An AP view was obtained. COMPARISON: No exams were available for comparison FINDINGS: MEDIASTINUM: Normal. HEART: Normal. PULMONARY VASCULATURE: Normal. LUNGS: Clear. PLEURAL SPACE: There is no pleural effusion. No pneumothorax is seen on the left. No definite pneumothorax is seen on the right, however evaluation of the lung apex is limited. BONE:Within normal limits for the patient's age. No displaced rib fractures identified. OTHER FINDINGS:Along the right chest wall superiorly, there does appear to be subcutaneous air extending into the neck. IMPRESSION: 1. Subcutaneous air along the right clavicle and right lateral chest wall. Noncontrast CT scan of the chest should be considered for further evaluation. 2. No evidence of a displaced rib fracture. No definite pneumothorax is seen, however evaluation of the lung apex is compromised. 3. No focal infiltrate or pleural effusion. 4. Findings were discussed with the Shelbie Ludwig at 9:20 a.m. on 06/03/2024. Radiologic Study #2: Attestation: I personally reviewed and interpreted this imaging study as follows: Imaging: CT Scan Radiologist's impression: EXAM: CT CHEST/ABD/PEL WO CLINICAL HISTORY: AMS, Elevated Creatanine, TECHNIQUE: Imaging Protocol: Axial computed tomography images with coronal and sagittal reformatted images were created and reviewed COMPARISON: There are no priors for comparison. FINDINGS: CHEST: Tracheobronchial tree: Patent where visualized. No bronchiectasis. Pulmonary parenchyma: Note is made of an azygos lobe. There is a reticular nodular infiltrate in the lower lobes bilaterally. No focal consolidating infiltrates are seen. No pulmonary nodules are seen. There is mild scarring in the right middle lobe and left lingula. Mediastinum and Teagan: There is pneumomediastinum present there is right apical pneumothorax which appears small. The esophagus is unremarkable. Thyroid gland: Unremarkable. Pleura: No pleural effusion. Heart: The heart is not dilated. Coronary artery calcification is present. No pericardial effusion. Aorta: The ascending thoracic aorta measures 4.3 x 4.1 cm. Atherosclerotic calcification is present. Lymph nodes: Within normal limits. Bones:Within normal limits for the patient's age. No displaced rib fractures are identified. Age-appropriate degenerative changes are seen in the spine. Soft tissues: There is extensive subcutaneous air in the neck and chest bilaterally. It extends inferiorly in the paraspinal soft tissues. ABDOMEN: Liver: Normal density. There is a 2.4 cm hypodense lesion in the right liver. It appears slightly hypodense to the urine in the urinary bladder suggesting a cyst. No suspicious hepatic lesions are seen at this time. Gallbladder and Biliary Tract: No radiodense calculus or dilation. Pancreas: Normal density, no abnormal calcifications or inflammatory process. Spleen: Calcified granuloma are present. Adrenals: No masses seen. Kidneys: Normal size, contour and axis. Left nephrolithiasis. No obstructive uropathy. There is a cyst in the left kidney. No follow-up is recommended. Abdominal Aorta: Atherosclerotic calcification is present. There is a 3 cm infrarenal abdominal aortic aneurysm. 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 Bowel: Evaluation of the bowel is limited due to lack of oral contrast and paucity of abdominal fat. No evidence of obstruction is seen. No evidence of an appendicitis. Peritoneal Cavity: No ascites, collection or mesenteric inflammatory response. No definite free air is seen. There is large bowel seen in the left upper quadrant. It appears to all be intraluminal. Lymph Nodes: Within normal limits. Bones: Within normal limits for the patient's age. Soft Tissues: There is subcutaneous air seen in the paraspinal soft tissues. PELVIS: Bladder: The bladder is markedly distended. It is otherwise unremarkable. This may reflect bladder outlet obstruction. Reproductive Organs: Enlarged prostate gland. Lymph Nodes: Within normal limits. Bones: Within normal limits for the patient's age. IMPRESSION: 1. Examination limited by lack of IV contrast and intra-abdominal fat. 2. Extensive subcutaneous gas particularly in the neck and chest region. 3. Pneumomediastinum and small right apical pneumothorax. 4. Reticular nodular infiltrate seen in the lung bases. Infectious or inflammatory process should be considered. No focal consolidating infiltrates are seen. 5. Unremarkable esophagus. 6. No displaced rib fractures. 7. 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 8. 2.4 cm hypodense lesion in the liver which appears represent a cyst. 9. Left nephrolithiasis without evidence of hydronephrosis. 10. Marked urinary bladder distention which may reflect bladder outlet obstruction. There is an enlarged prostate gland. 11. The ascending thoracic aorta measures 4.3 x 4.1 cm. Atherosclerotic calcification and coronary artery calcification is present. 12. Findings were discussed with Dr. Rivera at 11:45 a.m. on 06/03/2024. Radiologic Study #3: Attestation: I personally reviewed and interpreted this imaging study as follows: Imaging: CT Scan Radiologist's impression: EXAM: CT HEAD WO CLINICAL HISTORY: AMS. TECHNIQUE: Imaging Protocol: Axial computed tomography images with coronal and sagittal reformatted images were created and reviewed COMPARISON: No exams were available for comparison FINDINGS: There is patient motion artifact Ventricles and Extra axial spaces: Normal in size and morphology for the patient's age. Hemorrhage: None. Cerebral parenchyma: There are areas of decreased attenuation in the white matter consistent with chronic microvascular ischemic disease. No mass effect is identified. Midline shift: None. Brainstem/Cerebellum: Normal. Calvarium: Normal. Visualized Paranasal sinuses/Mastoids: Clear. Soft Tissues: There is subcutaneous air in the soft tissues of the neck. IMPRESSION: 1. No acute intracranial process. 2. Subcutaneous air in the soft tissues of the neck of indeterminate etiology. Lab Data Lab results reviewed: Yes I reviewed the patient's lab results. Labs: 06/03/24 09:10 Blood Blood Culture - Pending 06/03/24 08:45 Blood Blood Culture - Pending Laboratory Tests Range/Units 06/03/24 06/03/24 06/03/24 03:00 08:45 08:45 WBC (4.4-10.8) 10^3/uL 11.99 H RBC (4.36-5.78) 10^6/uL 4.87 Hgb (13.5-17.5) g/dL 14.7 Hct (40.0-50.0) % 46.1 MCV (80-95) fL 95 MCH (27.0-33.0) pg 30.2 MCHC (32.0-36.0) % 31.9 L RDW (11.8-14.1) % 17.8 H Plt Count (130-400) 10^3/uL 59 L MPV (8.0-11.0) fL 11.1 H Immature Gran % % 0.5 Neutrophils % % 85.6 Lymphocytes % % 8.6 Monocytes % % 5.1 Eosinophils % % 0.0 Basophils % % 0.2 Nucleated RBC % (0.0-0.3) % 0.2 Absolute Neutrophils (1.2-6.7) 10^3/uL 10.26 H Absolute Lymphocytes (1.2-3.4) 10^3/uL 1.03 L Absolute Monocytes (0.1-0.8) 10^3/uL 0.61 Absolute Eosinophils (0.0-0.7) 10^3/uL 0.00 Absolute Basophils (0.0-0.2) 10^3/uL 0.02 RBC Morphology Normal PT (9.1-11.1) sec 16.1 H INR (0.9-1.1) 1.7 H APTT (23.6-32.8) sec D-Dimer (<500) ng/mlFEU ABG Sample Site Right Radial ABG pH (7.35-7.45) 7.41 ABG pCO2 (35-45) mmHg 46 H ABG pO2 (80-105) mmHg 81 ABG HCO3 (22-26) mmol/L 30 H ABG Total CO2 (23-27) mmol/L 27 ABG O2 Saturation (95-98) % 95 ABG Base Excess (-2-3) mmol/L 5 H VBG Lactate (0.6-1.4) mmol/L Oxygen Liter Flow L Unknown/Not Given FiO2 % Unknown/Not Given Sodium (136-145) mmol/L 163 H* Potassium (3.5-5.1) mmol/L 4.4 Chloride (98-107) mmol/L 114 H Carbon Dioxide (21.0-32.0) mmol/L 32.7 H Anion Gap (3-11) mmol/L 16.3 H BUN (7-18) mg/dL 181 H* Creatinine (0.70-1.30) mg/dL 6.8 H* Est GFR (CKD-EPI 2020) (mL/min/1.73m2) 7.82 Glucose (74-106) mg/dL 160 H Calcium (8.5-10.1) mg/dL 11.0 H Magnesium (1.8-2.4) mg/dL 3.4 H Total Bilirubin (0.2-1.0) mg/dL 1.47 H Conjugated Bilirubin (0.0-0.2) mg/dL AST (15-37) U/L 22 ALT (16-63) U/L 25 Alkaline Phosphatase (46-116) U/L 88 Ammonia (11-32) umol/L Creatine Kinase (39-308) U/L 38 L Troponin I (< or =60) ng/L 59 C-Reactive Protein (<or=0.5) mg/dL 8.48 H NT-Pro-B Natriuret Pep (<300) pg/mL 2266 H Total Protein (6.4-8.2) g/dL 8.2 Albumin (3.4-5.0) g/dL 3.7 Procalcitonin ng/mL 0.7 TSH (0.36-3.74) uIU/mL 2.92 3.00 Ethyl Alcohol (<10) mg/dL < 3.0 Add-On Test Request Range/Units 06/03/24 06/03/24 06/03/24 09:00 09:23 09:41 WBC (4.4-10.8) 10^3/uL RBC (4.36-5.78) 10^6/uL Hgb (13.5-17.5) g/dL Hct (40.0-50.0) % MCV (80-95) fL MCH (27.0-33.0) pg MCHC (32.0-36.0) % RDW (11.8-14.1) % Plt Count (130-400) 10^3/uL MPV (8.0-11.0) fL Immature Gran % % Neutrophils % % Lymphocytes % % Monocytes % % Eosinophils % % Basophils % % Nucleated RBC % (0.0-0.3) % Absolute Neutrophils (1.2-6.7) 10^3/uL Absolute Lymphocytes (1.2-3.4) 10^3/uL Absolute Monocytes (0.1-0.8) 10^3/uL Absolute Eosinophils (0.0-0.7) 10^3/uL Absolute Basophils (0.0-0.2) 10^3/uL RBC Morphology PT (9.1-11.1) sec INR (0.9-1.1) APTT (23.6-32.8) sec D-Dimer (<500) ng/mlFEU ABG Sample Site ABG pH (7.35-7.45) ABG pCO2 (35-45) mmHg ABG pO2 (80-105) mmHg ABG HCO3 (22-26) mmol/L ABG Total CO2 (23-27) mmol/L ABG O2 Saturation (95-98) % ABG Base Excess (-2-3) mmol/L VBG Lactate (0.6-1.4) mmol/L Oxygen Liter Flow L FiO2 % Sodium (136-145) mmol/L Potassium (3.5-5.1) mmol/L Chloride (98-107) mmol/L Carbon Dioxide (21.0-32.0) mmol/L Anion Gap (3-11) mmol/L BUN (7-18) mg/dL Creatinine (0.70-1.30) mg/dL Est GFR (CKD-EPI 2020) (mL/min/1.73m2) Glucose (74-106) mg/dL Calcium (8.5-10.1) mg/dL Magnesium (1.8-2.4) mg/dL Total Bilirubin (0.2-1.0) mg/dL Conjugated Bilirubin (0.0-0.2) mg/dL AST (15-37) U/L ALT (16-63) U/L Alkaline Phosphatase (46-116) U/L Ammonia (11-32) umol/L < 10 L Creatine Kinase (39-308) U/L Troponin I (< or =60) ng/L C-Reactive Protein (<or=0.5) mg/dL NT-Pro-B Natriuret Pep (<300) pg/mL Total Protein (6.4-8.2) g/dL Albumin (3.4-5.0) g/dL Procalcitonin ng/mL TSH (0.36-3.74) uIU/mL Ethyl Alcohol (<10) mg/dL Add-On Test Request DONE DONE Range/Units 06/03/24 06/03/24 06/03/24 11:35 13:29 14:40 WBC (4.4-10.8) 10^3/uL RBC (4.36-5.78) 10^6/uL Hgb (13.5-17.5) g/dL Hct (40.0-50.0) % MCV (80-95) fL MCH (27.0-33.0) pg MCHC (32.0-36.0) % RDW (11.8-14.1) % Plt Count (130-400) 10^3/uL MPV (8.0-11.0) fL Immature Gran % % Neutrophils % % Lymphocytes % % Monocytes % % Eosinophils % % Basophils % % Nucleated RBC % (0.0-0.3) % Absolute Neutrophils (1.2-6.7) 10^3/uL Absolute Lymphocytes (1.2-3.4) 10^3/uL Absolute Monocytes (0.1-0.8) 10^3/uL Absolute Eosinophils (0.0-0.7) 10^3/uL Absolute Basophils (0.0-0.2) 10^3/uL RBC Morphology PT (9.1-11.1) sec INR (0.9-1.1) APTT (23.6-32.8) sec 22.5 L D-Dimer (<500) ng/mlFEU 4603 H ABG Sample Site ABG pH (7.35-7.45) ABG pCO2 (35-45) mmHg ABG pO2 (80-105) mmHg ABG HCO3 (22-26) mmol/L ABG Total CO2 (23-27) mmol/L ABG O2 Saturation (95-98) % ABG Base Excess (-2-3) mmol/L VBG Lactate (0.6-1.4) mmol/L Oxygen Liter Flow L FiO2 % Sodium (136-145) mmol/L 162 H* Cancelled Potassium (3.5-5.1) mmol/L 4.2 Cancelled Chloride (98-107) mmol/L 115 H Cancelled Carbon Dioxide (21.0-32.0) mmol/L 32.7 H Cancelled Anion Gap (3-11) mmol/L 14.3 H Cancelled BUN (7-18) mg/dL 176 H* Cancelled Creatinine (0.70-1.30) mg/dL 6.4 H* Cancelled Est GFR (CKD-EPI 2020) (mL/min/1.73m2) 8.41 Cancelled Glucose (74-106) mg/dL 158 H Cancelled Calcium (8.5-10.1) mg/dL 10.4 H Cancelled Magnesium (1.8-2.4) mg/dL Total Bilirubin (0.2-1.0) mg/dL Conjugated Bilirubin (0.0-0.2) mg/dL AST (15-37) U/L ALT (16-63) U/L Alkaline Phosphatase (46-116) U/L Ammonia (11-32) umol/L Creatine Kinase (39-308) U/L Troponin I (< or =60) ng/L 53 C-Reactive Protein (<or=0.5) mg/dL NT-Pro-B Natriuret Pep (<300) pg/mL 8 H Total Protein (6.4-8.2) g/dL Albumin (3.4-5.0) g/dL Procalcitonin ng/mL TSH (0.36-3.74) uIU/mL Ethyl Alcohol (<10) mg/dL Add-On Test Request Range/Units 06/03/24 06/03/24 06/03/24 15:22 15:29 17:29 WBC (4.4-10.8) 10^3/uL RBC (4.36-5.78) 10^6/uL Hgb (13.5-17.5) g/dL Hct (40.0-50.0) % MCV (80-95) fL MCH (27.0-33.0) pg MCHC (32.0-36.0) % RDW (11.8-14.1) % Plt Count (130-400) 10^3/uL MPV (8.0-11.0) fL Immature Gran % % Neutrophils % % Lymphocytes % % Monocytes % % Eosinophils % % Basophils % % Nucleated RBC % (0.0-0.3) % Absolute Neutrophils (1.2-6.7) 10^3/uL Absolute Lymphocytes (1.2-3.4) 10^3/uL Absolute Monocytes (0.1-0.8) 10^3/uL Absolute Eosinophils (0.0-0.7) 10^3/uL Absolute Basophils (0.0-0.2) 10^3/uL RBC Morphology PT (9.1-11.1) sec INR (0.9-1.1) APTT (23.6-32.8) sec D-Dimer (<500) ng/mlFEU ABG Sample Site ABG pH (7.35-7.45) ABG pCO2 (35-45) mmHg ABG pO2 (80-105) mmHg ABG HCO3 (22-26) mmol/L ABG Total CO2 (23-27) mmol/L ABG O2 Saturation (95-98) % ABG Base Excess (-2-3) mmol/L VBG Lactate (0.6-1.4) mmol/L 3.0 H* Oxygen Liter Flow L FiO2 % Sodium (136-145) mmol/L 165 H* Cancelled Cancelled Potassium (3.5-5.1) mmol/L 4.0 Cancelled Cancelled Chloride (98-107) mmol/L 118 H Cancelled Cancelled Carbon Dioxide (21.0-32.0) mmol/L 32.8 H Cancelled Cancelled Anion Gap (3-11) mmol/L 14.2 H Cancelled Cancelled BUN (7-18) mg/dL 179 H* Cancelled Cancelled Creatinine (0.70-1.30) mg/dL 6.0 H* Cancelled Cancelled Est GFR (CKD-EPI 2020) (mL/min/1.73m2) 9.09 Cancelled Cancelled Glucose (74-106) mg/dL 157 H Cancelled Cancelled Calcium (8.5-10.1) mg/dL 9.9 Cancelled Cancelled Magnesium (1.8-2.4) mg/dL Total Bilirubin (0.2-1.0) mg/dL Conjugated Bilirubin (0.0-0.2) mg/dL AST (15-37) U/L ALT (16-63) U/L Alkaline Phosphatase (46-116) U/L Ammonia (11-32) umol/L Creatine Kinase (39-308) U/L Troponin I (< or =60) ng/L C-Reactive Protein (<or=0.5) mg/dL NT-Pro-B Natriuret Pep (<300) pg/mL Total Protein (6.4-8.2) g/dL Albumin (3.4-5.0) g/dL Procalcitonin ng/mL TSH (0.36-3.74) uIU/mL Ethyl Alcohol (<10) mg/dL Add-On Test Request Range/Units 06/03/24 06/03/24 06/03/24 17:37 19:29 21:29 WBC (4.4-10.8) 10^3/uL RBC (4.36-5.78) 10^6/uL Hgb (13.5-17.5) g/dL Hct (40.0-50.0) % MCV (80-95) fL MCH (27.0-33.0) pg MCHC (32.0-36.0) % RDW (11.8-14.1) % Plt Count (130-400) 10^3/uL MPV (8.0-11.0) fL Immature Gran % % Neutrophils % % Lymphocytes % % Monocytes % % Eosinophils % % Basophils % % Nucleated RBC % (0.0-0.3) % Absolute Neutrophils (1.2-6.7) 10^3/uL Absolute Lymphocytes (1.2-3.4) 10^3/uL Absolute Monocytes (0.1-0.8) 10^3/uL Absolute Eosinophils (0.0-0.7) 10^3/uL Absolute Basophils (0.0-0.2) 10^3/uL RBC Morphology PT (9.1-11.1) sec INR (0.9-1.1) APTT (23.6-32.8) sec D-Dimer (<500) ng/mlFEU ABG Sample Site ABG pH (7.35-7.45) ABG pCO2 (35-45) mmHg ABG pO2 (80-105) mmHg ABG HCO3 (22-26) mmol/L ABG Total CO2 (23-27) mmol/L ABG O2 Saturation (95-98) % ABG Base Excess (-2-3) mmol/L VBG Lactate (0.6-1.4) mmol/L 2.9 H* Oxygen Liter Flow L FiO2 % Sodium (136-145) mmol/L Cancelled Cancelled Potassium (3.5-5.1) mmol/L Cancelled Cancelled Chloride (98-107) mmol/L Cancelled Cancelled Carbon Dioxide (21.0-32.0) mmol/L Cancelled Cancelled Anion Gap (3-11) mmol/L Cancelled Cancelled BUN (7-18) mg/dL Cancelled Cancelled Creatinine (0.70-1.30) mg/dL Cancelled Cancelled Est GFR (CKD-EPI 2020) (mL/min/1.73m2) Cancelled Cancelled Glucose (74-106) mg/dL Cancelled Cancelled Calcium (8.5-10.1) mg/dL Cancelled Cancelled Magnesium (1.8-2.4) mg/dL Total Bilirubin (0.2-1.0) mg/dL Conjugated Bilirubin (0.0-0.2) mg/dL 0.5 H AST (15-37) U/L ALT (16-63) U/L Alkaline Phosphatase (46-116) U/L Ammonia (11-32) umol/L Creatine Kinase (39-308) U/L Troponin I (< or =60) ng/L C-Reactive Protein (<or=0.5) mg/dL NT-Pro-B Natriuret Pep (<300) pg/mL Total Protein (6.4-8.2) g/dL Albumin (3.4-5.0) g/dL Procalcitonin ng/mL TSH (0.36-3.74) uIU/mL Ethyl Alcohol (<10) mg/dL Add-On Test Request Range/Units 06/03/24 23:29 WBC (4.4-10.8) 10^3/uL RBC (4.36-5.78) 10^6/uL Hgb (13.5-17.5) g/dL Hct (40.0-50.0) % MCV (80-95) fL MCH (27.0-33.0) pg MCHC (32.0-36.0) % RDW (11.8-14.1) % Plt Count (130-400) 10^3/uL MPV (8.0-11.0) fL Immature Gran % % Neutrophils % % Lymphocytes % % Monocytes % % Eosinophils % % Basophils % % Nucleated RBC % (0.0-0.3) % Absolute Neutrophils (1.2-6.7) 10^3/uL Absolute Lymphocytes (1.2-3.4) 10^3/uL Absolute Monocytes (0.1-0.8) 10^3/uL Absolute Eosinophils (0.0-0.7) 10^3/uL Absolute Basophils (0.0-0.2) 10^3/uL RBC Morphology PT (9.1-11.1) sec INR (0.9-1.1) APTT (23.6-32.8) sec D-Dimer (<500) ng/mlFEU ABG Sample Site ABG pH (7.35-7.45) ABG pCO2 (35-45) mmHg ABG pO2 (80-105) mmHg ABG HCO3 (22-26) mmol/L ABG Total CO2 (23-27) mmol/L ABG O2 Saturation (95-98) % ABG Base Excess (-2-3) mmol/L VBG Lactate (0.6-1.4) mmol/L Oxygen Liter Flow L FiO2 % Sodium (136-145) mmol/L Cancelled Potassium (3.5-5.1) mmol/L Cancelled Chloride (98-107) mmol/L Cancelled Carbon Dioxide (21.0-32.0) mmol/L Cancelled Anion Gap (3-11) mmol/L Cancelled BUN (7-18) mg/dL Cancelled Creatinine (0.70-1.30) mg/dL Cancelled Est GFR (CKD-EPI 2020) (mL/min/1.73m2) Cancelled Glucose (74-106) mg/dL Cancelled Calcium (8.5-10.1) mg/dL Cancelled Magnesium (1.8-2.4) mg/dL Total Bilirubin (0.2-1.0) mg/dL Conjugated Bilirubin (0.0-0.2) mg/dL AST (15-37) U/L ALT (16-63) U/L Alkaline Phosphatase (46-116) U/L Ammonia (11-32) umol/L Creatine Kinase (39-308) U/L Troponin I (< or =60) ng/L C-Reactive Protein (<or=0.5) mg/dL NT-Pro-B Natriuret Pep (<300) pg/mL Total Protein (6.4-8.2) g/dL Albumin (3.4-5.0) g/dL Procalcitonin ng/mL TSH (0.36-3.74) uIU/mL Ethyl Alcohol (<10) mg/dL Add-On Test Request Quality:[facility] Health Related Social Needs: No Data to Display Sign Out Sign Out Data: Sign Out Comment: Hypernatremia, Afib, refractory, Renal failure, Pending transfer to tertiary facility, awaiting call back from [facility]. Needs ICU admission. Last updated by Shelbie Ludwig NP at 06/03/24 16:12 Discharge Plan Disposition Patient Disposition: Transfer-Acute Inpatient Care Specific Acute In Facility: [facility] Condition: Deteriorating Discharge Details Clinical Impression: Acute renal failure, Pneumomediastinum, Shock, Sepsis, Pneumothorax, right, Subcutaneous emphysema, Hypernatremia, Atrial fibrillation with rapid ventricular response Primary Care Provider: Unknown,Unknown ED Provider: Alex Moreno Home Meds and New Rx's Prescriptions: No Action No Known Home Meds
[2024-06-03 16:13] LABS: Anion Gap 14.2 mmol/L (3-11); CO2 32.8 mmol/L (21.0-32.0); Calcium 9.9 mg/dL (8.5-10.1); Chloride 118 mmol/L (98-107); Estimated GFR 9.09 (mL/min/1.73m2); Glucose 157 mg/dL (74-106)
[2024-06-03 16:16] LABS: BUN 179 mg/dL (7-18)
[2024-06-03 16:17] LABS: Sodium 165 mmol/L (136-145)
[2024-06-03] MEDS: Lactated Ringers 500 ML 1000 ML IV (17:12)
--- NOTE | 2024-06-03 17:18 | CMPROGNOTE_ITS ---
Date of service: 06/03/24 Time of Service: 07:31 Care Management Progress Note Progress Note Text Progress Note Text: CM met with Vicente at the bedside for initial assessment per ED consult. Vicente was able to lightly whisper, and did write 20 on CM's clipboard. He stated he had been in the [facility] 20 years, yet SW notes from 2019 stated he had relocated from [place] around that time. Vicente was very tired, and very thin and appeared to be emaciated. CM thanked him for his engagement and permitted him to rest. MCG: CM asked UR RN to run clinicals through [facility] to determine level of care- Vicente met inpatient criteria for hypernatremia, renal failure, Afib and failure to thrive-was transferred later in the day. CM consulted CJ: Jessica who provided updated insurance information, including Medicare and Medicaid, SS# and last known address which CM provided to Access to update chart. Jessica also reports Vicente was previously supported with housing and food, and appears to have been placed in an apartment and may still be attached to [facility] services. Jaydon Roca listed as PCP-ED [facility] Coordinator Jen called for clinicals and the practice reported having no record of this patient. SDOH(Care Management) Screening Will the Patient Participate in the Screening?: Unable to obtain
[2024-06-03 17:48] LABS: Lactate 2.9 mmol/L (0.6-1.4)
[2024-06-03 18:07] LABS: Bilirubin, Direct 0.5 mg/dL (0.0-0.2)
[2024-06-03 18:13] LABS: Troponin I < 50 ng/L (< or =60)
[2024-06-03 22:37] LABS: Fibrinogen 81 mg/dL (171-384)
--- NOTE | 2024-06-04 08:17 | NUR.NOTE ---
Accessed Pt chart to confirm that Pt went to [facility] for his [facility] coordinator, Aminah Marsh.
--- NOTE | 2024-06-04 08:27 | NUR.NOTE ---
Received Critical Results for Fibrinogen, 81. Faxed these results to [facility]. Results shared with Shelbie Luwdig
== END 2024-06-03 19:34 | disposition short-term general hospital (02) ==
PROVIDERS: Internal Medicine Critical Care Medicine; Registered Nurse Emergency; Emergency Provider Physician Assistant
DX: J98.2 Interstitial emphysema (principal); E87.0 Hyperosmolality and hypernatremia; N17.9 Acute kidney failure, unspecified; I48.91 Unspecified atrial fibrillation; D69.6 Thrombocytopenia, unspecified; R64 Cachexia; R57.1 Hypovolemic shock; J93.9 Pneumothorax, unspecified; E87.29 Other acidosis; G93.41 Metabolic encephalopathy
CPT/HCPCS: 00123; 36415; 51702; 71250; 80048; 80053; 80307; 82550; 82805; 84145; 85384; 87040; 93005; 96361; 96365; 96366; 96368; 96375; 99284; 99291; 99292; 36600; 70450; 71045; 74176; 80320; 81003; 82140; 82248; 83605; 83735; 83880; 84443; 84484; 85025; 85379; 85610; 85730; 86140; 93010; J0692; J2371